=== PATIENT | male | born 1990 | race Caucasian/White ===

== ENCOUNTER 2016-11-08 10:56 | Outpatient (CLI) | payer OTHER ==
--- NOTE | 2016-11-08 13:13 | RAD ---
PA AND LATERAL OF THE CHEST: INDICATION: Lightheadedness with inhalation and pneumonia. COMPARISON: Prior acute abdominal series dated 09/09/12 PA and lateral of the chest. INDICATION: Lightheadedness with pneumonia. COMPARISON: Prior exam dated 09/09/12. FINDINGS: Lungs are clear. Cardiomediastinal silhouette is normal. No acute osseous abnormality is evident. IMPRESSION: No acute cardiopulmonary abnormality. POS: [facility]
== END 2016-11-08 10:57 | disposition home or self-care (01) ==
LOC: MADRAD 10:56
PROVIDERS: ATTEND Family Medicine
DX: J18.8 Other pneumonia, unspecified organism (principal)
CPT/HCPCS: 71020